=== PATIENT | male | born 1995 | race Caucasian/White ===

== ENCOUNTER 2019-01-30 12:42 | Emergency (ER) | payer OTHER, SELFPAY ==
[~2019-01-30] VITALS: Ht 177.8 cm; Wt 77.3 kg
[2019-01-30 16:07] VITALS: BP 149/68
[2019-02-05] MEDS ORDERED: LEVO750T13 PO (22:28)
[2019-02-05] MEDS ORDERED: PEPC1TAB5 PO (23:31)
== END 2019-01-30 19:31 | disposition left against medical advice (07) ==
LOC: M ED 12:42
DX: Z53.21 Procedure and treatment not carried out due to patient leaving prior to being seen by health care provider (principal)

== ENCOUNTER 2019-02-01 09:40 | Emergency (ER) | payer OTHER, SELFPAY ==
[~2019-02-01] VITALS: Ht 175.3 cm; Wt 78.2 kg
[2019-02-01 10:52] LABS: BASO # 0.1 10^3/uL (0.0-0.2); BASO % 0.9 % (0.0-1.0); EOS # 0.4 10^3/uL (0.0-0.50); HEMATOCRIT 42.1 % (42.0-52.0); HEMOGLOBIN 14.6 g/dl (13.5-17.5); LYMPH # 1.5 10^3/uL (1.5-6.5); LYMPH % 18.3 % (24.0-44.0); MEAN CORPUSCULAR HEMOGLOBIN 29.1 pg (27.0-33.0); MEAN CORPUSCULAR HGB CONC 34.7 g/dl (32.0-36.5); MEAN CORPUSCULAR VOLUME 83.9 fl (80.0-96.0); MONO # 0.9 10^3/uL (0.0-0.8); MONO % 11.5 % (0.0-5.0); NEUTROPHILS # 5.1 10^3/uL (1.8-7.7); NEUTROPHILS % 63.9 % (36.0-66.0); PLATELET COUNT, AUTOMATED 302 10^3/uL (150-450); RED BLOOD COUNT 5.02 10^6/uL (4.30-6.10)
--- NOTE | 2019-02-01 10:58 | REP ---
Clinical: Cough and shortness of breath. Technique: PA and lateral. Findings: Patchy alveolar infiltrates primarily involving the right mid to lower lung zone are appreciated and consistent with acute pneumonia. No effusion. No pneumothorax. Mediastinum and cardiac silhouette are within normal limits. Impression: Patchy infiltrates suggesting pneumonia (right greater than left). Electronically Signed by Frantz Negro MD 02/01/2019 10:50 A
[2019-02-01 11:07] LABS: BLOOD UREA NITROGEN 11 MG/DL (7-18); CALCIUM LEVEL 9.9 MG/DL (8.5-10.1); CARBON DIOXIDE LEVEL 27 MEQ/L (21-32); CHLORIDE LEVEL 106 MEQ/L (98-107); GLOMERULAR FILTRATION RATE > 60.0 (>60); GLUCOSE, FASTING 80 MG/DL (70-100); POTASSIUM SERUM 4.5 MEQ/L (3.5-5.1); SODIUM LEVEL 141 MEQ/L (136-145)
[2019-02-01] MEDS ORDERED: ISOVUE-370 76% 100ML VIAL (Q9967) As Ordered ONE (11:28)
--- NOTE | 2019-02-01 12:30 | REP ---
Clinical: Hemoptysis. Technique: Axial contrast enhanced images from the thoracic inlet to the upper abdomen using pulmonary embolus technique with 100 ml Isovue 370 intravenous contrast material. Findings: Satisfactory enhancement of the pulmonary vasculature is achieved and no I obvious filling defects are identified to suggest pulmonary embolus. Moderate area of right lower lobe consolidation with air bronchograms is consistent with lobar pneumonia. No effusion. No pneumothorax. Tracheobronchial tree is patent. Associated reactive mediastinal and right hilar adenopathy noted. Mediastinum demonstrates normal thoracic aorta and heart/pulmonary vasculature. Musculoskeletal structures are intact. Impression: 1. No pulmonary embolus. 2. Right lower lobe lobar pneumonia. Electronically Signed by Frantz Negro MD 02/01/2019 12:22 P
[2019-02-01] MEDS ORDERED: LEVA750T7 PO (12:46)
[2019-02-01 12:50] VITALS: BP 135/76
[2019-02-01] MEDS ORDERED: LevoFLOXacin 750 MG TABLET PO ONE (13:00)
[2019-02-05] MEDS ORDERED: LEVO750T13 PO (22:28)
[2019-02-05] MEDS ORDERED: PEPC1TAB5 PO (23:31)
== END 2019-02-01 12:57 | disposition home or self-care (01) ==
LOC: M ED 09:40
DX: J18.1 Lobar pneumonia, unspecified organism (principal); K92.0 Hematemesis
CPT/HCPCS: 71046; 71275; 80048; 85025; 85379; 99284; Q9967